=== PATIENT | female | born 1980 | race Caucasian/White ===

== ENCOUNTER 2016-07-11 10:33 | Inpatient (IN) | payer OTHER ==
[~2016-07-11] VITALS: Ht 162.6 cm; Wt 84.5 kg
[2016-07-11] VITALS (18 sets, daily range): BP systolic 92–107; BP diastolic 42–70; PULSE 58–98; TEMP 97.3–98.2
[~2016-07-11 10:33] MED LIST: DOXYCYCLINE 10100 MG PO; MOTRIN 600600 MG/TAB PO; PERCOCET 325 MG1 TA2 PO; PRENATAL1 TA1 PO
[2016-07-11] MEDS ORDERED: B-12 500 MCG PO (10:42)
[2016-07-11 11:11] LABS: BASO % 0.4 % (0.0-2.0); EOS % 0.3 % (0-4.0); GRAN # 7.6 (1.4-6.5); GRAN % 78.4 % (42.2-75.2); HEMATOCRIT 38.6 % (37.0-47.0); HEMOGLOBIN 13.2 g/dl (12.5-16.0); LYMPH # 1.5 (1.2-3.4); LYMPH % 15.2 % (20.0-51.0); MEAN CELL VOLUME 89 fl (80.0-100.0); MEAN CORPUSCULAR HEMOGLOBIN 30 pg (27.0-31.0); MEAN CORPUSCULAR HGB CONC 34 g/dl (33.0-37.0); MEAN PLATELET VOLUME 10.8 fl (7.4-10.4); MONO # 0.5 (0.1-0.6); MONO % 4.9 % (1.7-9.3); PLATELET COUNT 280 K/mm3 (130-400); RED BLOOD COUNT 4.36 M/mm3 (4.10-5.30); REDCELL DISTRIBUTION WIDTH-CV 13.1 % (11.5-14.5); WHITE BLOOD COUNT 9.7 K/mm3 (4.8-10.8)
[2016-07-12 08:10] VITALS: BP 105/55; PULSE 75; TEMP 98.1
[2016-07-12 08:16] LABS: HEMOGLOBIN 12.7 g/dl (12.5-16.0)
[2016-07-12 13:47] VITALS: BP 92/57; PULSE 56
[2016-07-12 21:30] VITALS: BP 103/62; PULSE 72; TEMP 98.6
[2016-07-13] MEDS ORDERED: IBU600 MG PO (08:23)
[2016-07-13] MEDS ORDERED: PERCOCET 325 MG1 TA2 PO (08:23)
[2016-07-13 09:00] VITALS: BP 100/54; PULSE 81; TEMP 98.5
[2016-07-13 20:30] VITALS: BP 95/56; PULSE 62; TEMP 98.3
[2016-07-14 06:52] VITALS: BP 88/69; PULSE 63; TEMP 98.1
== END 2016-07-14 12:00 | disposition home or self-care (01) | DRG 766 ==
LOC: LDRO 10:33 → LDR 10:51 → OB 10:51 → LDRO 14:20 → OB 14:30
PROVIDERS: Obstetrics & Gynecology
PROC: 10D00Z1 Extraction of Products of Conception, Low, Open Approach (ICD-10-PCS; principal; 2016-07-11)
DX: O42.02 Full-term premature rupture of membranes, onset of labor within 24 hours of rupture (principal); O34.211 Maternal care for low transverse scar from previous cesarean delivery; N85.8 Other specified noninflammatory disorders of uterus; O34.03 Maternal care for unspecified congenital malformation of uterus, third trimester; Q51.3 Bicornate uterus; O32.1XX0 Maternal care for breech presentation, not applicable or unspecified; Z3A.38 38 weeks gestation of pregnancy; Z37.0 Single live birth
CPT/HCPCS: J0690; J1885; J2270; J2370; J2405; J2590; J7120

== ENCOUNTER → 2017-12-12 | Outpatient (REF) ==
[~2017-12-12] MED LIST changes: +B-12 500 MCG PO; +IBU600 MG PO
== END ==
LOC: ZLAB.WCH 18:22
DX: Z01.89 Encounter for other specified special examinations (principal)

== ENCOUNTER → 2018-03-17 | Outpatient (REF) ==
[2018-03-17 10:35] LABS: THYROID STIMULATING HORMONE 1.63 uIU/mL (0.465-4.680)
== END ==
LOC: ZLAB.WCH 09:40
PROVIDERS: Family Medicine
DX: Z01.89 Encounter for other specified special examinations (principal)